=== PATIENT | male | born 1970 ===

== ENCOUNTER 2022-07-08 09:06 | Emergency (ER) ==
[2022-07-08] MEDS ORDERED: Fentanyl 100 MCG/2 ML VIAL ONE (09:23)
[2022-07-08] MEDS ORDERED: Ondansetron PF 4 MG/2 ML Vial ONE (10:24)
[2022-07-08] MEDS ORDERED: Bacitracin 1 PK ONE (10:34)
== END 2022-07-08 12:37 | disposition home or self-care (01) ==
LOC: ERS 09:06
DX: S92.021A Displaced fracture of anterior process of right calcaneus, initial encounter for closed fracture (principal); E78.00 Pure hypercholesterolemia, unspecified; W11.XXXA Fall on and from ladder, initial encounter; Z79.899 Other long term (current) drug therapy
CPT/HCPCS: 96374; 96375; J2405; J3010